=== PATIENT | female | born 1955 | race Caucasian/White ===

== ENCOUNTER 2017-08-12 14:10 | Emergency (ER) | payer OTHER ==
[~2017-08-12] VITALS: Ht 162.6 cm; Wt 66.0 kg
[2017-08-12] MEDS ORDERED: SODIUM CHLORIDE 0.9% 1,000 ML IV ONE (14:31)
[2017-08-12] MEDS ORDERED: KETOROLAC 30 MG/1 ML ONE (14:39)
[2017-08-12] MEDS ORDERED: SODIUM CHLORIDE 0.9% 1,000ML IVBOLUS ONE (15:00)
[2017-08-12] MEDS ORDERED: TIZA4CAP PO (15:00)
[2017-08-12] MEDS ORDERED: AMIT75TA PO (15:00)
[2017-08-12] MEDS ORDERED: GABA300C10 PO (15:00)
[2017-08-12] MEDS ORDERED: GABA-827 PO (15:00)
[2017-08-12] MEDS ORDERED: SODIUM CHLORIDE FLUSH 10ML SYR IVF ONE (15:00)
[2017-08-12] MEDS ORDERED: OXYC-307 PO (15:00)
[2017-08-12] MEDS ORDERED: KETOROLAC 30 MG/1 ML IVPush ONE (15:00)
[2017-08-12 15:03] LABS: HEMATOCRIT 44.4 % (34.6-47.8); HEMOGLOBIN 15.2 g/dL (11.7-16.4); WHITE BLOOD COUNT 12.2 x10^3/uL (3.4-10)
[2017-08-12 15:14] LABS: BLOOD UREA NITROGEN 14 mg/dL (7-18)
[2017-08-12 16:11] VITALS: BP 131/73
[2017-08-12] MEDS ORDERED: METOCLOPRAMIDE 5 MG/ML, 2ML ONE (16:17)
[2017-08-12] MEDS ORDERED: DIPHENHYDRAMINE 50 MG/ML, 1ML ONE (16:17)
[2017-08-12] MEDS ORDERED: DIPHENHYDRAMINE 50 MG/ML, 1ML IVPush ONE (16:30)
[2017-08-12] MEDS ORDERED: METOCLOPRAMIDE 5 MG/ML, 2ML IVPush ONE (16:30)
[2017-08-12] MEDS ORDERED: DEXAMETHASONE 4 MG TABLET ONE (17:15)
[2017-08-12] MEDS ORDERED: DEXAMETHASONE 4 MG TABLET PO ONE (17:30)
== END 2017-08-12 17:27 | disposition home or self-care (01) ==
LOC: ED 16:57
DX: J44.0 Chronic obstructive pulmonary disease with (acute) lower respiratory infection (principal); E87.1 Hypo-osmolality and hyponatremia; Z99.81 Dependence on supplemental oxygen
CPT/HCPCS: 36415; 71010; 80048; 81003; 82040; 83605; 85025; 87040; 96361; 96374; 96375; 99285; J1200; J1885; J2765; J7030

== ENCOUNTER 2019-01-07 12:52 | Outpatient (CLI) | payer OTHER ==
[~2019-01-07 12:52] MED LIST: AMIT75TA PO; GABA-827 PO; GABA300C10 PO; OXYC-307 PO; TIZA4CAP PO
== END 2019-01-07 23:59 | disposition home or self-care (01) ==
LOC: CFH 12:52
PROVIDERS: ATTEND Family Medicine
DX: R92.8 Other abnormal and inconclusive findings on diagnostic imaging of breast (principal); N64.4 Mastodynia
CPT/HCPCS: 76641; 77066; G0279